=== PATIENT | male | born 1960 | race Caucasian/White ===

== ENCOUNTER 2022-04-21 10:27 | Observation (INO) | payer OTHER ==
[2022-04-21] MEDS ORDERED: Boostrix 0.5 ML (Tdap) VIAL (>/=7 yrs of age) ONE (10:42)
[2022-04-21] MEDS ORDERED: Ondansetron PF 4 MG/2 ML Vial ONE (10:42)
[2022-04-21] MEDS ORDERED: FENTANYL 50 MCG/ML 1 ML VIAL ONE (10:42)
[2022-04-21 10:55] LABS: #Eosinphils 0.1 thou/uL (0.0-0.7); #Lymphocytes 1.3 thou/uL (1.20-3.40); #Monocytes 0.6 thou/uL (0.11-0.59); #Neutrophils 6.4 thou/uL (1.40-6.50); %Basophils 0.6 % (0.0-1.0); %Eosinophils 1.7 % (0.0-10.0); %Lymphocytes 15.4 % (21.0-51.0); %Monocytes 6.9 % (0.0-10.0); %Neutrophils 75.5 % (42.0-75.0); Hemoglobin 14.7 g/dL (14.0-18.0); Mean Corpuscular HGB CONC 34.8 g/dL (32.0-36.0); Mean Corpuscular Hemoglobin 31.6 pg (27.0-31.0); Mean Corpuscular Volume 90.8 fl (78.0-98.0); Mean Platelet Volume 7.6 fL (7.4-10.4); Platelet Count 215 10x3/uL (130-400); Red Blood Cell (RBC) Count 4.66 mill/uL (4.70-6.10); White Blood Cell (WBC) Count 8.5 10x3/uL (4.8-10.8)
[2022-04-21] MEDS ORDERED: Fluorescein Opthalmic Strip ONE (11:06)
[2022-04-21] MEDS ORDERED: Proparacaine 0.5% Opth 15 ML BOT ONE (11:06)
[2022-04-21 11:09] LABS: ALT (SGPT) 22 U/L (8-55); AST (SGOT) 27 U/L (5-34); Albumin 4.1 g/dL (3.5-5.0); Alkaline Phosphatase 50 U/L (40-110); Anion Gap 13 mmol/L (10-20); BUN (Urea Nitrogen) 17 mg/dL (8.4-25.7); Bilirubin, Total 0.4 mg/dL (0.2-1.2); Calc. Creatinine Clearance 0 mL/min (70-130); Carbon Dioxide 25 mmol/L (22-29); Chloride 106 mmol/L (98-107); Estimated GFR 87; Globulin 2.3 g/dL (2.4-3.5); Glucose 105 mg/dL (70-105); Potassium 3.9 mmol/L (3.5-5.1); Protein, Total 6.4 g/dL (6.0-8.3); Sodium 140 mmol/L (136-145)
[2022-04-21] MEDS ORDERED: LORazepam 2 MG/ML SYR.(CARPUJECT) ONE (11:55)
[2022-04-21] MEDS ORDERED: ISOVUE-370 76%-LOCM 1 ML ONE (15:15)
[2022-04-21] MEDS ORDERED: Acetaminophen 500 MG TAB ONE (16:02)
[2022-04-21] MEDS ORDERED: Ibuprofen 800 MG TAB ONE (16:02)
[2022-04-21] MEDS ORDERED: Dextrose 5% in Water 1,000 ML IV PRN (17:50)
[2022-04-21] MEDS ORDERED: Ondansetron PF 4 MG/2 ML Vial IVP PRN (17:50)
[2022-04-21] MEDS ORDERED: Dextrose 50% Abboject 50 ML SYRINGE SLOW IVP PRN (17:50)
[2022-04-21] MEDS ORDERED: hydrALAZINE 20 MG/ML VIAL SLOW IVP PRN (17:50)
[2022-04-21] MEDS ORDERED: Acetaminophen 500 MG TAB PO PRN (17:53)
[2022-04-21] MEDS ORDERED: Sodium Chloride 0.9% 1,000 ML IV SCH (18:00)
[2022-04-21] MEDS ORDERED: Ibuprofen 200 MG TAB PO PRN (18:13)
[2022-04-21] MEDS: Famotidine 20 MG TAB PO SCH (20:30)
[2022-04-21] MEDS ORDERED: Gabapentin 300 MG CAP PO SCH (21:00)
[2022-04-21 21:53] VITALS: BMI 29.6
[2022-04-22 00:13] LABS: SARS-CoV-2 NAA Rapid Test Not Detected (NotDetected)
[2022-04-22] MEDS: Acetaminophen 325 MG TAB PO PRN ×2 (03:26→08:27)
[2022-04-22] MEDS: Famotidine 20 MG TAB PO SCH (08:27)
[2022-04-22 08:42] LABS: #Lymphocytes 1.1 thou/uL (1.20-3.40); #Monocytes 0.8 thou/uL (0.11-0.59); #Neutrophils 6.2 thou/uL (1.40-6.50); %Basophils 0.5 % (0.0-1.0); %Eosinophils 0.2 % (0.0-10.0); %Lymphocytes 13.4 % (21.0-51.0); %Monocytes 9.8 % (0.0-10.0); %Neutrophils 76.1 % (42.0-75.0); Hemoglobin 13.1 g/dL (14.0-18.0); Mean Corpuscular HGB CONC 33.6 g/dL (32.0-36.0); Mean Corpuscular Hemoglobin 30.8 pg (27.0-31.0); Mean Corpuscular Volume 91.6 fl (78.0-98.0); Mean Platelet Volume 7.6 fL (7.4-10.4); Platelet Count 211 10x3/uL (130-400); RBC Distribution Width 12.1 % (11.5-14.5); Red Blood Cell (RBC) Count 4.27 mill/uL (4.70-6.10); White Blood Cell (WBC) Count 8.2 10x3/uL (4.8-10.8)
[2022-04-22 09:00] LABS: Anion Gap 12 mmol/L (10-20); BUN (Urea Nitrogen) 14 mg/dL (8.4-25.7); Calc. Creatinine Clearance 136 mL/min (70-130); Calcium 8.7 mg/dL (7.8-10.44); Carbon Dioxide 23 mmol/L (22-29); Chloride 107 mmol/L (98-107); Estimated GFR 93; Glucose 109 mg/dL (70-105); Magnesium 1.9 mg/dL (1.6-2.6); Phosphorus 2.4 mg/dL (2.3-4.7); Potassium 4.1 mmol/L (3.5-5.1); Sodium 138 mmol/L (136-145)
[2022-04-22] MEDS ORDERED: traMADol HCl 50 MG TAB PO PRN (10:26)
[2022-04-22] MEDS ORDERED: Cyclobenzaprine 10 MG TAB PO PRN (10:30)
[2022-04-22 14:03] VITALS: BP 137/75; TEMP 97.8
[2022-04-22] MEDS ORDERED: Gabapentin 300 MG CAP PO SCH (21:00)
== END 2022-04-22 14:40 | disposition home or self-care (01) ==
LOC: ERS 10:27 → SURG A 17:46 → INTOOBSV 17:46
PROVIDERS: ADMIT Surgery; ATTEND Surgery
DX: S12.391A Other nondisplaced fracture of fourth cervical vertebra, initial encounter for closed fracture (principal); S12.491A Other nondisplaced fracture of fifth cervical vertebra, initial encounter for closed fracture; H05.20 Unspecified exophthalmos; S02.831A Fracture of medial orbital wall, right side, initial encounter for closed fracture; R55 Syncope and collapse; M48.02 Spinal stenosis, cervical region; G89.29 Other chronic pain; M54.9 Dorsalgia, unspecified; Z79.899 Other long term (current) drug therapy; Z20.822 Contact with and (suspected) exposure to COVID-19; V29.99XA Rider (driver) (passenger) of other motorcycle injured in unspecified traffic accident, initial encounter
CPT/HCPCS: 36415; 70450; 70486; 71260; 72125; 74177; 80048; 80053; 83735; 84100; 85025; 90715; 96374; 96375; G0390; J2060; J2405; J3010; J7050; Q9966; U0002